=== PATIENT | male | born 1965 | race African-American/Black ===

== ENCOUNTER 2016-12-29 15:20 | Inpatient (IN) | payer OTHER ==
[~2016-12-29] VITALS: Ht 193 cm; Wt 88.8 kg
[2016-12-29 17:15] LABS: EOSINOPHIL (%) 1.3 % (0-5); EOSINOPHIL COUNT 0.1 K/uL (0-0.3); HEMATOCRIT 40.5 % (38.0-50.0); INSTRUMENT ABS NEUTROPHIL CT 1.8 K/uL; LYMPHOCYTE COUNT 1.9 K/uL (1.0-2.8); MCHC 33.1 G/DL (30.0-36.0); MCV 93.8 FL (86-99); MEAN PLAT.VOLUME 9.8 uM^3 (9.0-12.4); MONOCYTE (%) 6.3 % (3-12); MONOCYTE COUNT 0.3 K/uL (0-0.8); NEUTROPHIL (%) 44.4 % (45-76); NEUTROPHIL COUNT 1.8 K/uL (1.8-6.4); PLATELET COUNT 217 K/uL (156-360); RBC DIS.WIDTH-CV 15.4 % (11.8-14.6); RBC DIS.WIDTH-SD 53.2 % (39-53); RED BLOOD COUNT 4.32 M/uL (4.00-5.50)
[2016-12-29 17:24] LABS: CHLORIDE 109 mEq/L (99-109); SODIUM 144 mEq/L (136-147)
[2016-12-29 17:26] LABS: GLUCOSE 114 mg/dL (70-99)
[2016-12-29 17:27] LABS: ANION GAP 18 MEQ/L (2-14)
[2016-12-29 17:29] LABS: SERUM ETHYL ALCOHOL 208 mg/dL
[2016-12-29 17:30] LABS: GFR ESTIMATE (CALCULATED) > 59 mL/min/
[2016-12-29 17:32] LABS: UREA NITROGEN (BUN) 15 mg/dL (9-23)
[2016-12-29 17:33] LABS: SALICYLATE < 5.0 MG/DL (15-30)
[2016-12-29 19:15] LABS: AMPHETAMINE NEGATIVE (500 ng/mL); BARBITURATES NEGATIVE (200 ng/mL); BENZODIAZEPINES NEGATIVE (150 ng/mL); COCAINE NEGATIVE (150 ng/mL); INTERNAL CONTROLS VALID? YES; METHADONE NEGATIVE (200 ng/mL); METHAMPHETAMINE NEGATIVE (500 ng/mL); OPIATES (MORPHINE) NEGATIVE (100 ng/mL); OXYCODONE NEGATIVE (100 ng/mL); PHENCYCLIDINE NEGATIVE (25 ng/mL); PROPOXYPHENE NEGATIVE (300 ng/mL); THC CANNABINOIDS NEGATIVE (50 ng/mL); TRICYCLIC ANTIDEPRESSANTS NEGATIVE (300 ng/mL)
[2016-12-29] MEDS ORDERED: METFORMIN HCL1000 MG PO (20:33)
[2016-12-29] MEDS ORDERED: LISINOPRIL5 MG PO (20:33)
[2016-12-29 22:53] VITALS: BP 139/78
[2016-12-29] MEDS ORDERED: MOTRIN800 MG PO (23:20)
[2016-12-30 08:09] VITALS: BP 143/83
[2016-12-30 15:26] VITALS: BP 149/89
[2016-12-31 07:21] VITALS: BP 150/83
[2016-12-31] MEDS ORDERED: NALTREXONE HCL50 MG PO (09:45)
[2016-12-31] MEDS ORDERED: ESCITALOPRAM OX10 MG PO (09:46)
== END 2016-12-31 11:00 | disposition home or self-care (01) | DRG 881 ==
LOC: EME 15:20 → 1WEST 22:18 → EDOF 22:18 → ENRESERV 22:37 → 1WEST 22:48
PROVIDERS: Emergency Medicine
DX: F34.1 Dysthymic disorder (principal); R45.851 Suicidal ideations; F10.239 Alcohol dependence with withdrawal, unspecified; E11.9 Type 2 diabetes mellitus without complications; Z59.0 Homelessness
CPT/HCPCS: 80048; 85025; 90839; 99281; 99285; G0480

== ENCOUNTER 2017-02-27 10:02 | Emergency (ER) | payer OTHER ==
[~2017-02-27] VITALS: Ht 190.5 cm; Wt 93.5 kg
[~2017-02-27 10:02] MED LIST: ESCITALOPRAM OX10 MG PO; LISINOPRIL5 MG PO; METFORMIN HCL1000 MG PO; MOTRIN800 MG PO; NALTREXONE HCL50 MG PO
[2017-02-27 12:55] VITALS: BP 158/80
== END 2017-02-27 13:06 | disposition home or self-care (01) ==
LOC: EME 10:02
DX: J36 Peritonsillar abscess (principal)
CPT/HCPCS: 99281; 99284; J0295; J2270; J2405; J7030; J7050

== ENCOUNTER 2017-03-17 03:11 | Emergency (ER) | payer OTHER ==
[~2017-03-17] VITALS: Ht 188 cm; Wt 90.0 kg
[2017-03-17] MEDS ORDERED: CLEOCIN300 MG PO (06:02)
[2017-03-17 06:16] VITALS: BP 140/89
== END 2017-03-17 06:18 | disposition home or self-care (01) ==
LOC: EME 03:11
DX: J02.9 Acute pharyngitis, unspecified (principal)
CPT/HCPCS: 99281; 99283; J1100; J1885

== ENCOUNTER 2017-06-05 14:58 | Emergency (ER) | payer OTHER ==
[~2017-06-05] VITALS: Ht 188 cm; Wt 91.0 kg
[~2017-06-05 14:58] MED LIST changes: +CLEOCIN300 MG PO
[2017-06-05 15:53] LABS: HEMATOCRIT 41.7 % (38.0-50.0); HEMOGLOBIN 14.3 G/DL (12.5-16.6); MCH 31.7 PG (29.0-34.0); MCHC 34.3 G/DL (30.0-36.0); MCV 92.5 FL (86-99); PLATELET COUNT 90 K/uL (156-360); RBC DIS.WIDTH-CV 14.8 % (11.8-14.6); RBC DIS.WIDTH-SD 50.7 % (39-53); RED BLOOD COUNT 4.51 M/uL (4.00-5.50); WHITE BLOOD COUNT 4.1 K/uL (4.1-10.2)
[2017-06-05 16:02] LABS: CHLORIDE 98 mEq/L (99-109); POTASSIUM 3.2 mEq/L (3.7-5.4); SODIUM 133 mEq/L (136-147)
[2017-06-05 16:04] LABS: GLUCOSE 126 mg/dL (70-99)
[2017-06-05 16:08] LABS: CREATININE 1.1 mg/dL (0.6-1.3); GFR ESTIMATE (CALCULATED) > 59 mL/min/ (58.99-99999)
[2017-06-05 16:09] LABS: UREA NITROGEN (BUN) 13 mg/dL (9-23)
[2017-06-05 16:15] LABS: TROP-I INTERPRETATION NEGATIVE; TROPONIN-I < 0.01 ng/mL (0.0-0.30)
[2017-06-05 17:40] VITALS: BP 146/91
== END 2017-06-05 17:58 | disposition home or self-care (01) ==
LOC: EME 14:58
PROVIDERS: Emergency Medicine
DX: J11.1 Influenza due to unidentified influenza virus with other respiratory manifestations (principal); R51 Headache; E11.9 Type 2 diabetes mellitus without complications; Z79.84 Long term (current) use of oral hypoglycemic drugs
CPT/HCPCS: 71046; 80048; 84484; 85027; 85610; 85730; 87502; 93005; 94640; 99281; 99285; J7030; J7512